=== PATIENT | female | born 1990 | race Caucasian/White ===

== ENCOUNTER 2017-04-15 13:39 | Emergency (ER) | payer OTHER ==
[~2017-04-15] VITALS: Ht 157.5 cm; Wt 96.3 kg
[~2017-04-15 13:39] MED LIST: NATALCARE RX1 TABLET PO; OMEGA 3-6-9 CO1 EACH PO; [UNRECOGNIZED DRUG - OTHER] IM
[2017-04-15 14:31] LABS: ADD MIUA? YES; BILIRUBIN NEGATIVE; BLOOD NEGATIVE; COLOR AMBER ((YELLOW)); GLUCOSE (STRIP) NEGATIVE; KETONES 20; LEUKOCYTES MODERATE; NITRITE NEGATIVE; PROTEIN (STRIP) 30; SPECIFIC GRAVITY 1.028 (1.000-1.030)
[2017-04-15 14:33] LABS: INTERNAL CONTROL VALID? YES
[2017-04-15 14:34] LABS: BACTERIA RARE /HPF; EPITHELIAL CELLS 1+ /HPF; MUCUS 1+ /LPF; RED BLOOD CELLS 0-5 /HPF (0-5); UCUL ADDED? YES
[2017-04-15] MEDS ORDERED: PHENERGAN12.5 MG PR (16:49)
[2017-04-15] MEDS ORDERED: ZOFRAN4 MG PO (16:49)
[2017-04-15 16:51] VITALS: BP 120/75
== END 2017-04-15 16:54 | disposition home or self-care (01) ==
LOC: EME 13:39
DX: O26.891 Other specified pregnancy related conditions, first trimester (principal); R11.2 Nausea with vomiting, unspecified; Z3A.00 Weeks of gestation of pregnancy not specified
CPT/HCPCS: 81003; 84703; 87086; 99281; 99284

== ENCOUNTER 2017-06-22 21:37 | Emergency (ER) | payer OTHER ==
[~2017-06-22] VITALS: Ht 157.5 cm; Wt 86.0 kg
[~2017-06-22 21:37] MED LIST changes: +PHENERGAN12.5 MG PR; +ZOFRAN4 MG PO
[2017-06-22 22:42] LABS: APPEARANCE CLOUDY ((CLEAR)); BILIRUBIN NEGATIVE; BLOOD NEGATIVE; COLOR YELLOW ((YELLOW)); GLUCOSE (STRIP) NEGATIVE; KETONES NEGATIVE; LEUKOCYTES SMALL; NITRITE NEGATIVE; PROTEIN (STRIP) 30; SPECIFIC GRAVITY 1.024 (1.000-1.030)
[2017-06-22 22:58] LABS: BACTERIA 1+ /HPF; EPITHELIAL CELLS 2+ /HPF; MUCUS RARE /LPF; RED BLOOD CELLS 0-5 /HPF (0-5)
[2017-06-23 00:32] LABS: HEMATOCRIT 35.4 % (36.0-46.0); MCH 30.5 PG (29.0-34.0); MCHC 33.9 G/DL (30.0-36.0); MCV 89.8 FL (83-99); PLATELET COUNT 300 K/uL (156-360); RBC DIS.WIDTH-SD 42.6 % (39-53); RED BLOOD COUNT 3.94 M/uL (3.80-5.20); WHITE BLOOD COUNT 11.5 K/uL (4.1-10.2)
[2017-06-23] MEDS ORDERED: ZOFRAN ODT4 MG PO (00:42)
[2017-06-23] MEDS ORDERED: KEFLEX500 MG PO (00:42)
[2017-06-23 00:47] LABS: ALBUMIN 3.4 g/dL (3.2-4.8); CHLORIDE 103 mEq/L (99-109); POTASSIUM 3.8 mEq/L (3.7-5.4); SODIUM 136 mEq/L (136-147)
[2017-06-23 00:50] LABS: GLUCOSE 94 mg/dL (70-99); TOTAL PROTEIN 6.7 g/dL (6.4-8.3)
[2017-06-23 00:51] LABS: TOTAL BILIRUBIN 0.2 mg/dL (0.0-1.0)
[2017-06-23 00:53] LABS: ALKALINE PHOSPHATASE 62 IU/L (3-129); CREATININE 0.7 mg/dL (0.6-1.3); GFR ESTIMATE (CALCULATED) > 59 mL/min/
[2017-06-23 00:54] LABS: UREA NITROGEN (BUN) 7 mg/dL (9-23)
[2017-06-23 00:55] LABS: AST (GOT) 10 IU/L (2-34)
[2017-06-23 00:56] LABS: ALT (GPT) 11 IU/L (3-49)
[2017-06-23 01:08] VITALS: BP 105/60
[2017-06-23 01:19] LABS: QUANTITATIVE HCG 32981.9 MIU/ML
== END 2017-06-23 01:09 | disposition home or self-care (01) ==
LOC: EME 21:37
PROVIDERS: Nurse Practitioner Family
DX: O23.42 Unspecified infection of urinary tract in pregnancy, second trimester (principal); O09.32 Supervision of pregnancy with insufficient antenatal care, second trimester; O21.9 Vomiting of pregnancy, unspecified; N89.8 Other specified noninflammatory disorders of vagina; Z3A.17 17 weeks gestation of pregnancy
CPT/HCPCS: 76805; 80053; 81003; 84702; 85027; 86850; 86900; 86901; 99281; 99284